=== PATIENT | female | born 1960 | race Caucasian/White ===

== ENCOUNTER 2017-11-29 23:01 | Emergency (ER) | payer OTHER, SELFPAY ==
--- NOTE | 2017-11-29 23:42 | EDPHYS ---
Physician Documentation [facility] Name: Etelvina Polk Age: 57 yrs Sex: Female : 1960 Arrival Date: 11/29/2017 Time: 23:04 Bed 16 Private MD: Aylin Thakkar K ED Physician Teddy Patricio HPI: 11/30 00:00 This 57 yrs old Female presents to ER via Ambulatory with complaints of pm1 Urinary Problem. 00:00 Onset: The symptoms/episode began/occurred 4 day(s) ago. pm1 00:00 The patient presents with urinary symptoms, frequency, urgency, pressure. Modifying pm1 factors: The symptoms are alleviated by nothing, the symptoms are aggravated by urinating. Associated signs and symptoms: Pertinent negatives: fever, nausea, vomiting, flank pain. Severity of symptoms: in the emergency department the symptoms are actually worse. The patient has experienced similar episodes in the past, a few times. The patient has not recently seen a physician. Historical: - Allergies: 11/29 23:25 Cortisone; bb 23:25 Sulfa (Sulfonamide Antibiotics); bb 23:25 bisoprolol fumarate; bb 23:25 Macrobid; bb 23:25 Zofran; bb 23:25 Aleve; bb - Home Meds: 23:25 [place] Thyroid 60 mg oral tab daily [Active]; Premarin 0.625 mg oral tab 1 tab once bb daily [Active]; Lomotil oral oral as needed [Active]; - PMHx: 23:25 Hypothyroidism; ibs; palpitations; bb - PSHx: 23:25 Hysterectomy; ; ectopic ; multiple surgeries for endometriosis; bb - Immunization history:: Adult Immunizations up to date. - Social history:: Smoking status: Patient/guardian denies using tobacco, Patient/guardian denies using alcohol, street drugs. - Ebola Screening: : No symptoms or risks identified at this time. ROS: 11/30 00:00 Positive for urinary frequency, hematuria, foul smelling urine. pm1 Constitutional: Negative for fever, chills, and weight loss, Eyes: Negative for injury, pain, redness, and discharge, ENT: Negative for injury, pain, and discharge, Neck: Negative for injury, pain, and swelling, Cardiovascular: Negative for chest pain, palpitations, and edema, Respiratory: Negative for shortness of breath, cough, wheezing, and pleuritic chest pain, Abdomen/GI: Negative for abdominal pain, nausea, vomiting, diarrhea, and constipation, Back: Negative for injury and pain, MS/Extremity: Negative for injury and deformity, Skin: Negative for injury, rash, and discoloration, Neuro: Negative for headache, weakness, numbness, tingling, and seizure. Exam: 00:00 Constitutional: This is a well developed, well nourished patient who is awake, alert, pm1 and in no acute distress. Head/Face: Normocephalic, atraumatic. Eyes: Pupils equal round and reactive to light, extra-ocular motions intact. Lids and lashes normal. Conjunctiva and sclera are non-icteric and not injected. Cornea within normal limits. Periorbital areas with no swelling, redness, or edema. ENT: Nares patent. No nasal discharge, no septal abnormalities noted. Tympanic membranes are normal and external auditory canals are clear. Oropharynx with no redness, swelling, or masses, exudates, or evidence of obstruction, uvula midline. Mucous membranes moist. Neck: Trachea midline, no thyromegaly or masses palpated, and no cervical lymphadenopathy. Supple, full range of motion without nuchal rigidity, or vertebral point tenderness. No Meningismus. Chest/axilla: Normal chest wall appearance and motion. Nontender with no deformity. No lesions are appreciated. Cardiovascular: Regular rate and rhythm with a normal S1 and S2. No gallops, murmurs, or rubs. Normal PMI, no JVD. No pulse deficits. Respiratory: Lungs have equal breath sounds bilaterally, clear to auscultation and percussion. No rales, rhonchi or wheezes noted. No increased work of breathing, no retractions or nasal flaring. Abdomen/GI: Soft, non-tender, with normal bowel sounds. No distension or tympany. No guarding or rebound. No evidence of tenderness throughout. Back: No spinal tenderness. No costovertebral tenderness. Full range of motion. Skin: Warm, dry with normal turgor. Normal color with no rashes, no lesions, and no evidence of cellulitis. MS/ Extremity: Pulses equal, no cyanosis. Neurovascular intact. Full, normal range of motion. 00:00 Neuro: Orientation: is normal, Motor: is normal, moves all fours. Vital Signs: 11/29 23:25 BP 172 / 80; Pulse 104; Resp 18 S; Temp 98.4(O); Pulse Ox 100% on R/A; Weight 74.84 kg bb (M); Height 5 ft. 6 in. (167.64 cm) (R); Pain 8/10; 23:58 BP 110 / 64; Pulse 90; Resp 18; Pulse Ox 98% on R/A; Pain 0/10; ea 23:25 Body Mass Index 26.63 (74.84 kg, 167.64 cm) bb MDM: 23:29 Patient medically screened. pm1 23:41 Data reviewed: vital signs. Data interpreted: Pulse oximetry: on room air is 100 %. pm1 Interpretation: normal. Counseling: I had a detailed discussion with the patient and/or guardian regarding: the historical points, exam findings, and any diagnostic results supporting the discharge/admit diagnosis, lab results, the need for outpatient follow up, to return to the emergency department if symptoms worsen or persist or if there are any questions or concerns that arise at home, pending urine culture. 11/29 23:30 Order name: Urine Microscopic Only; Complete Time: 03:46 pm1 11/29 23:41 Order name: Urine Dipstick--Ancillary (enter results); Complete Time: 03:46 rg2 11/29 23:30 Order name: Urine Dipstick-Ancillary (obtain specimen); Complete Time: 23:40 pm1 Administered Medications: 23:52 Drug: Rocephin (cefTRIAXone) 1 grams Route: IM; Site: right gluteus; ea 11/30 00:34 Follow up: Response: No adverse reaction ea Disposition: 00:45 Co-signature as Attending Physician, Teddy Patricio MD I agree with the assessment and kdr plan of care. Disposition: 11/29/17 23:42 Discharged to Home. Impression: Urinary tract infection, site not specified. - Condition is Stable. - Discharge Instructions: Urinary Tract Infection. - Prescriptions for Augmentin 875- 125 mg Oral Tablet - take 1 tablet by ORAL route every 12 hours for 10 days; 20 tablet. Diflucan 150 mg Oral Tablet - take 1 tablet by ORAL route one time for 1 day; 1 tablet. Lomotil 2.5- 0.025 mg Oral Tablet - take 1 tablet by ORAL route every 6 hours As needed; 20 tablet. - Medication Reconciliation Form, Thank You Letter, Antibiotic Education form. - Follow up: Emergency Department; When: As needed; Reason: Worsening of condition. Follow up: Aylin Thakkar MD; When: 2 - 3 days; Reason: Recheck today's complaints, Continuance of care, Re-evaluation by your physician. - Problem is new. - Symptoms have improved. Signatures: Dispatcher [employer] EDMS Teddy Patricio MD MD [facility] Kelly Goldstein RN RN bb Zeferino Johnson NP EQUAL OPPORTUNITY ASSISTANT pm1 Aria Clay RN RN ea Corrections: (The following items were deleted from the chart) 00:35 07 23:42 11/29/2017 23:42 Discharged to Home. Impression: Urinary tract infection, ea site not specified. Condition is Stable. Forms are Medication Reconciliation Form, Thank You Letter, Antibiotic Education, Prescription Opioid Use. Follow up: Emergency Department; When: As needed; Reason: Worsening of condition. Follow up: Aylin Thakkar; When: 2 - 3 days; Reason: Recheck today's complaints, Continuance of care, Re-evaluation by your physician. Problem is new. Symptoms have improved. pm1
--- NOTE | 2017-11-29 23:42 | ER ---
Nurse's Notes [facility] Name: Etelvina Polk Age: 57 yrs Sex: Female : 1960 Arrival Date: 11/29/2017 Time: 23:04 Bed 16 Private MD: Aylin Thakkar K Diagnosis: Urinary tract infection, site not specified Presentation: 11/29 23:20 Presenting complaint: Patient states: she thinks she is having symptoms of a UTI for bb several days with frequency, pressure, pink-tinged urine that is cloudy and foul smelling. Transition of care: patient was not received from another setting of care. Onset of symptoms was November 26, 2017. Risk Assessment: Do you want to hurt yourself or someone else? Patient reports no desire to harm self or others. Initial Sepsis Screen: Does the patient meet any 2 criteria? No. Patient's initial sepsis screen is negative. Does the patient have a suspected source of infection? No. Patient's initial sepsis screen is negative. Care prior to arrival: None. 23:20 Method Of Arrival: Ambulatory bb 23:20 Acuity: JUAN C 4 bb Historical: - Allergies: 23:25 Cortisone; bb 23:25 Sulfa (Sulfonamide Antibiotics); bb 23:25 bisoprolol fumarate; bb 23:25 Macrobid; bb 23:25 Zofran; bb 23:25 Aleve; bb - Home Meds: 23:25 [place] Thyroid 60 mg oral tab daily [Active]; Premarin 0.625 mg oral tab 1 tab once bb daily [Active]; Lomotil oral oral as needed [Active]; - PMHx: 23:25 Hypothyroidism; ibs; palpitations; bb - PSHx: 23:25 Hysterectomy; ; ectopic ; multiple surgeries for endometriosis; bb - Immunization history:: Adult Immunizations up to date. - Social history:: Smoking status: Patient/guardian denies using tobacco, Patient/guardian denies using alcohol, street drugs. - Ebola Screening: : No symptoms or risks identified at this time. Screenin:34 Abuse screen: Denies threats or abuse. Nutritional screening: No deficits noted. ea Tuberculosis screening: No symptoms or risk factors identified. Fall Risk None identified. Assessment: 23:31 General: Appears in no apparent distress. Behavior is calm, cooperative, appropriate ea for age. General: Pt reports she has been feeling frequency, and pressure when urinating, pt reports she has been putting it off for about three days, but she noticed her urine turn dark tea color today. . General:. Pain: Denies pain. Neuro: Level of Consciousness is awake, alert, obeys commands, Oriented to person, place, time, situation. Cardiovascular: Patient's skin is warm and dry. Respiratory: Airway is patent Respiratory effort is even, unlabored, Respiratory pattern is regular, symmetrical. GI: Abdomen is non-distended. : Urine is cloudy, Reports urgency, urinary frequency. EENT: No signs and/or symptoms were reported regarding the EENT system. Derm: Skin is pink, warm \T\ dry. Musculoskeletal: Circulation, motion, and sensation intact. 11/30 00:07 Reassessment: Patient and/or family updated on plan of care and expected duration. Pain ea level reassessed. Patient is alert, oriented x 3, equal unlabored respirations, skin warm/dry/pink. Discharge instruction given to patient, verbalized the understanding of instruction. Awaiting for shot time. Vital Signs: 11/29 23:25 BP 172 / 80; Pulse 104; Resp 18 S; Temp 98.4(O); Pulse Ox 100% on R/A; Weight 74.84 kg bb (M); Height 5 ft. 6 in. (167.64 cm) (R); Pain 8/10; 23:58 BP 110 / 64; Pulse 90; Resp 18; Pulse Ox 98% on R/A; Pain 0/10; ea 23:25 Body Mass Index 26.63 (74.84 kg, 167.64 cm) ED Course: 23:04 Patient arrived in ED. al2 23:04 Aylin Thakkar MD is Private Physician. al2 23:21 Zeferino Johnson NP is PHCP. pm1 23:21 Teddy Patricio MD is Attending Physician. pm1 23:22 Triage completed. bb 23:23 Aria Clay, MELLISSA is Primary Nurse. ea 23:25 Arm band placed on Patient placed in an exam room, on a stretcher, on pulse oximetry. bb Family accompanied patient. 23:35 Patient has correct armband on for positive identification. Bed in low position. Call ea light in reach. Side rails up X2. 23:41 Aylin Thakkar MD is Referral Physician. pm1 23:57 No provider procedures requiring assistance completed. Patient did not have IV access ea during this emergency room visit. Administered Medications: 23:52 Drug: Rocephin (cefTRIAXone) 1 grams Route: IM; Site: right gluteus; ea 11/30 00:34 Follow up: Response: No adverse reaction ea Outcome: 11/29 23:42 Discharge ordered by . pm1 11/30 00:07 Condition: improved ea Discharge instructions given to patient, Instructed on discharge instructions, follow up and referral plans. medication usage, Demonstrated understanding of instructions, follow-up care, medications, Prescriptions given X 3. 00:33 Discharged to home ambulatory, with significant other. ea 00:35 Patient left the ED. ea Signatures: Kelly Goldstein RN Zeferino Devries, MARITA HEADRIG SAWYER pm1 Aria Clay RN RN ea Love, Angelica al2 Corrections: (The following items were deleted from the chart) 11/29 23:22 23:19 Presenting complaint: frank marie
[2017-11-29] MEDS ORDERED: CEFTRIAXONE 1000 MG/VIAL ONE (23:44)
[2017-11-30 00:37] LABS: Calcium Oxalate Crystals- Ur FEW (NONE SEEN); Urine Bacteria <20 /HPF (<20); Urine Culture Reflex Order REFLEXED; Urine RBC TNTC /HPF (NONE SEEN)
[2017-11-30 02:26] LABS: Urine Blood 3+ (NEG); Urine Glucose NEGATIVE (NEG); Urine Protein 2+ (NEG); Urine Specific Gravity 1.025 (1.005-1.030); Urine pH 5.5 (5.0-7.0)
== END 2017-11-30 00:35 | disposition home or self-care (01) ==
LOC: ER 23:01
DX: N39.0 Urinary tract infection, site not specified (principal); E03.9 Hypothyroidism, unspecified; Z88.1 Allergy status to other antibiotic agents; Z88.2 Allergy status to sulfonamides; Z88.8 Allergy status to other drugs, medicaments and biological substances
CPT/HCPCS: 81003; 81015; 87086; 87088; 96372; 99283

== ENCOUNTER 2021-09-25 15:28 | Emergency (ER) | payer BC ==
[2021-09-25 16:19] LABS: Absolute Lymphocytes (CBC) 0.6 K/uL (0.7-4.9); Hematocrit 43.8 % (36.0-45.0); Lymphocytes % 9.8 % (15.3-44.8); MPV 7.2 fL (7.6-11.3); RBC Red Blood Cell Count 4.89 M/uL (3.86-4.86)
[2021-09-25 16:42] LABS: Albumin 4.2 g/dL (3.4-5.0); Bilirubin Direct 0.1 mg/dL (0-0.2); Bilirubin Total 0.5 mg/dL (0.2-1.0); Potassium 3.7 mmol/L (3.5-5.1); Protein, Total 7.8 g/dL (6.4-8.2); Thyroid Stimulating Hormone 2.03 uIU/mL (0.360-3.740); Troponin High Sensitivity 6.8 pg/mL (<58.9)
--- NOTE | 2021-09-25 16:53 | RAD REPORT ---
EXAM DESCRIPTION: RAD - Chest Single View - 09/25/2021 4:34 pm CLINICAL HISTORY: PALPITATIONS COMPARISON: Portable 01/25/2016 TECHNIQUE: AP portable chest image was obtained 09/25/2021 4:34 pm . FINDINGS: Lungs are clear. Heart and vasculature are normal. No measurable pleural effusion and no p neumothorax. No acute bony abnormality seen. No acute aortic findings suspected. IMPRESSION: No acute cardiopulmonary process.
--- NOTE | 2021-09-25 17:47 | EDPHYS ---
Physician Documentation [facility] Name: Etelvina Polk Age: 61 yrs Sex: Female : 1960 Arrival Date: 09/25/2021 Time: 15:31 Bed 19 Private MD: Aylin Thakkar K ED Physician Velasquez Zhao HPI: 09/25 15:58 This 61 yrs old Female presents to ER via Ambulatory with complaints of High Blood pm1 Pressure, Heart Racing. 15:58 The patient has elevated blood pressure and discovered this at home, with a home device.pm1 15:58 Onset: The symptoms/episode began/occurred today. Modifying factors: The symptoms are pm1 aggravated by patient relates it to her exposure and illness to mono 6 years ago. Associated signs and symptoms: Pertinent positives: palpitations, Pertinent negatives: chest pain, dizziness, dyspnea, headache, nausea, vomiting. The patient has not recently seen a physician. Historical: - Allergies: 15:58 Macrobid; vg1 15:58 Aleve; vg1 15:58 bisoprolol fumarate; vg1 15:58 Cortisone; vg1 15:58 Sulfa (Sulfonamide Antibiotics); vg1 15:58 Zofran; vg1 - Home Meds: 15:58 [place] Thyroid 30 mg oral tab [Active]; Premarin 0.625 mg Oral tab 1 tab once daily vg1 [Active]; Lomotil Oral as needed [Active]; - PMHx: 15:58 Hypothyroidism; ibs; palpitations; vg1 - Immunization history:: Client reports having NOT received the Covid vaccine. - Social history:: Smoking status: Patient denies any tobacco usage or history of. ROS: 15:58 Constitutional: Negative for fever, chills, and weight loss, Cardiovascular: Negative pm1 for chest pain and edema, positive palpitations Respiratory: Negative for shortness of breath, cough, wheezing, and pleuritic chest pain, Abdomen/GI: Negative for abdominal pain, nausea, vomiting, diarrhea, and constipation, Back: Negative for injury and pain, MS/Extremity: Negative for injury and deformity, Skin: Negative for injury, rash, and discoloration, Neuro: Negative for headache, weakness, numbness, tingling, and seizure. 15:58 All other systems are negative. Exam: 15:58 Constitutional: This is a well developed, well nourished patient who is awake, alert, pm1 and in no acute distress. Head/Face: Normocephalic, atraumatic. 15:58 Back: No spinal tenderness. No costovertebral tenderness. Full range of motion. Skin: Warm, dry with normal turgor. Normal color with no rashes, no lesions, and no evidence of cellulitis. MS/ Extremity: Pulses equal, no cyanosis. Neurovascular intact. Full, normal range of motion. 15:58 Cardiovascular: Exam negative for acute changes, Rate: normal, Rhythm: regular, Pulses: no pulse deficits are appreciated, Edema: is not appreciated. 15:58 Respiratory: Exam negative for acute changes, respiratory distress, shortness of breath, Breath sounds: are clear throughout. 15:58 Abdomen/GI: Exam negative for acute changes, Inspection: abdomen appears normal, Palpation: abdomen is soft and non-tender, in all quadrants. 15:58 Neuro: Exam negative for acute changes, Orientation: is normal, Mentation: is normal, Motor: is normal, moves all fours. Vital Signs: 15:52 BP 184 / 92; Pulse 105; Resp 16; Temp 98.8(TE); Pulse Ox 100% ; Weight 80.29 kg; Height vg1 5 ft. 6 in. (167.64 cm); Pain 0/10; 16:41 BP 174 / 84; Pulse 99; ll1 18:11 BP 148 / 76; Pulse 90; Resp 16; Pulse Ox 100% ; Pain 0/10; ll1 15:52 Body Mass Index 28.57 (80.29 kg, 167.64 cm) vg1 MDM: 15:50 Patient medically screened. pm1 17:46 Data reviewed: vital signs. Data interpreted: Pulse oximetry: on room air is 100 %. pm1 Interpretation: normal. Counseling: I had a detailed discussion with the patient and/or guardian regarding: the historical points, exam findings, and any diagnostic results supporting the discharge/admit diagnosis, lab results, radiology results, the need for outpatient follow up, a family practitioner, to return to the emergency department if symptoms worsen or persist or if there are any questions or concerns that arise at home. 09/25 15:58 Order name: Basic Metabolic Panel; Complete Time: 17:06 pm1 09/25 15:58 Order name: CBC with Diff; Complete Time: 17:06 pm1 09/25 15:58 Order name: LFT's; Complete Time: 17:06 pm1 09/25 15:58 Order name: Magnesium; Complete Time: 17:06 pm1 09/25 15:58 Order name: Troponin HS; Complete Time: 17:06 pm1 09/25 15:58 Order name: TSH; Complete Time: 17:06 pm1 09/25 15:58 Order name: XRAY Chest (1 view); Complete Time: 17:06 pm1 09/25 15:58 Order name: EKG; Complete Time: 15:59 pm1 09/25 15:58 Order name: Cardiac monitoring; Complete Time: 16:30 pm1 09/25 15:58 Order name: EKG - Nurse/Tech; Complete Time: 16:30 pm1 09/25 15:58 Order name: IV Saline Lock; Complete Time: 16:20 pm1 09/25 15:58 Order name: Labs collected and sent; Complete Time: 16:20 pm1 09/25 15:58 Order name: O2 Per Protocol; Complete Time: 16:20 pm1 09/25 15:58 Order name: O2 Sat Monitoring; Complete Time: 16:20 pm1 Administered Medications: No medications were administered Disposition: 09/26 12:22 Co-signature as Attending Physician, Velasquez Zhao MD. rn Disposition Summary: 09/25/21 17:47 Discharge Ordered Location: Home pm1 Problem: new pm1 Symptoms: have improved pm1 Condition: Stable pm1 Diagnosis - Essential (primary) hypertension pm1 - Palpitations pm1 Followup: pm1 - With: Emergency Department - When: As needed - Reason: Worsening of condition Followup: pm1 - With: Private Physician - When: 2 - 3 days - Reason: Recheck today's complaints, Continuance of care, Re-evaluation by your physician Discharge Instructions: - Discharge Summary Sheet pm1 - Hypertension, Adult pm1 - Palpitations pm1 - How to Take Your Blood Pressure, [id number] pm1 - DASH Eating Plan pm1 - Managing Your Hypertension pm1 Forms: - Medication Reconciliation Form pm1 - Thank You Letter pm1 - Antibiotic Education pm1 - Prescription Opioid Use pm1 Signatures: Dispatcher [employer] EDVelasquez Stevens MD MD rn Zeferino Johnson, MARITA PCTS pm1 Trudy Muniz RN RN vg1 Corrections: (The following items were deleted from the chart) 12:19 09/25 15:58 The patient has elevated blood pressure and discovered this at a friend's pm1 home, pm1 09/26 12:21 05 15:58 Constitutional: Negative for fever, chills, and weight loss, pm1 Cardiovascular: Negative for chest pain, palpitations, and edema, Respiratory: Negative for shortness of breath, cough, wheezing, and pleuritic chest pain, Abdomen/GI: Negative for abdominal pain, nausea, vomiting, diarrhea, and constipation, Back: Negative for injury and pain, MS/Extremity: Negative for injury and deformity, Skin: Negative for injury, rash, and discoloration, Neuro: Negative for headache, weakness, numbness, tingling, and seizure, pm1
--- NOTE | 2021-09-25 17:47 | ER ---
Nurse[facility] Notes [facility] Name: Etelvina Polk Age: 61 yrs Sex: Female : 1960 Arrival Date: 09/25/2021 Time: 15:31 Bed 19 Private MD: Aylin Thakkar K Diagnosis: Essential (primary) hypertension;Palpitations Presentation: 09/25 15:52 Chief complaint: Patient states: "I had mono six years ago and since then I've had vg1 issues with my heart" Pt states palpitations that 'feel like pounding, BP at home was 220/107 around 1500. Denies headache, chest pain or SOB and states nausea. Coronavirus screen: Vaccine status: Patient reports being unvaccinated. Client denies travel out of the [place] in the last 14 days. Ebola Screen: Patient denies exposure to infectious person. Patient denies travel to an Ebola-affected area in the 21 days before illness onset. Initial Sepsis Screen: Does the patient meet any 2 criteria? HR > 90 bpm. Does the patient have a suspected source of infection? No. Patient's initial sepsis screen is negative. Risk Assessment: Do you want to hurt yourself or someone else? Patient reports no desire to harm self or others. Onset of symptoms was September 25, 2021. 15:52 Method Of Arrival: Ambulatory vg1 15:52 Acuity: JUAN C 3 vg1 Triage Assessment: 15:58 General: Appears uncomfortable, Behavior is calm, cooperative. Pain: Denies pain. vg1 Neuro: Level of Consciousness is awake, alert, obeys commands, Oriented to person, place, time, situation. Cardiovascular: Patient's skin is warm and dry. Historical: - Allergies: 15:58 Macrobid; vg1 15:58 Aleve; vg1 15:58 bisoprolol fumarate; vg1 15:58 Cortisone; vg1 15:58 Sulfa (Sulfonamide Antibiotics); vg1 15:58 Zofran; vg1 - Home Meds: 15:58 [place] Thyroid 30 mg oral tab [Active]; Premarin 0.625 mg Oral tab 1 tab once daily vg1 [Active]; Lomotil Oral as needed [Active]; - PMHx: 15:58 Hypothyroidism; ibs; palpitations; vg1 - Immunization history:: Client reports having NOT received the Covid vaccine. - Social history:: Smoking status: Patient denies any tobacco usage or history of. Screenin:19 Abuse screen: Denies threats or abuse. Nutritional screening: No deficits noted. ll1 Tuberculosis screening: No symptoms or risk factors identified. 18:13 Fall Risk IV access (20 points). Total Miles Fall Scale indicates No Risk (0-24 pts). ll1 Assessment: 16:19 Reassessment: No changes from previously documented assessment. Patient and/or family ll1 updated on plan of care and expected duration. Pain level reassessed. Patient is alert, oriented x 3, equal unlabored respirations, skin warm/dry/pink. 17:15 Reassessment: No changes from previously documented assessment. Patient and/or family ll1 updated on plan of care and expected duration. Pain level reassessed. Patient is alert, oriented x 3, equal unlabored respirations, skin warm/dry/pink. 18:12 Reassessment: No changes from previously documented assessment. Patient and/or family ll1 updated on plan of care and expected duration. Pain level reassessed. Patient is alert, oriented x 3, equal unlabored respirations, skin warm/dry/pink. Vital Signs: 15:52 BP 184 / 92; Pulse 105; Resp 16; Temp 98.8(TE); Pulse Ox 100% ; Weight 80.29 kg; Height vg1 5 ft. 6 in. (167.64 cm); Pain 0/10; 16:41 BP 174 / 84; Pulse 99; ll1 18:11 BP 148 / 76; Pulse 90; Resp 16; Pulse Ox 100% ; Pain 0/10; ll1 15:52 Body Mass Index 28.57 (80.29 kg, 167.64 cm) vg1 ED Course: 15:31 Patient arrived in ED. mr 15:32 Aylin Thakkar MD is Private Physician. mr 15:38 Zeferino Johnson NP is PHCP. pm1 15:38 Velasquez Zhao MD is Attending Physician. pm1 15:57 Triage completed. vg1 15:58 Arm band placed on. vg1 16:19 Kwaku Bonilla RN is Primary Nurse. ll1 16:19 Patient placed in an exam room, on a stretcher. ll1 16:19 Patient has correct armband on for positive identification. Bed in low position. Call 1 light in reach. Side rails up X 1. conveyor monitor on. Pulse ox on. 16:30 Warm blanket given. NIBP on. [facility] 16:31 Initial lab(s) drawn, by me, sent to lab. Inserted saline lock: 22 gauge in left [facility] antecubital area, using aseptic technique. Blood collected. 16:32 TSH Sent. [facility] 16:32 Basic Metabolic Panel Sent. [facility] 16:32 LFT's Sent. [facility] 16:32 Magnesium Sent. [facility] 16:32 Troponin HS Sent. [facility] 16:36 XRAY Chest (1 view) In Process Unspecified. EDMS 18:12 No provider procedures requiring assistance completed. IV discontinued, intact, ll1 bleeding controlled, No redness/swelling at site. Pressure dressing applied. Administered Medications: No medications were administered Outcome: 17:47 Discharge ordered by MD. pm1 18:12 Discharged to home ambulatory. ll1 18:12 Condition: stable 18:12 Discharge instructions given to patient, Instructed on discharge instructions, follow up and referral plans. Demonstrated understanding of instructions, follow-up care. 18:13 Patient left the ED. 1 Signatures: Dispatcher [employer] EDNE WilliamLee Ann ElizabethZeferino, MARITA LOCOMOTIVE CRANE ENGINEER [address] [facility] Trudy Muniz, RN RN vg1 Kwaku Bonilla RN RN 1 Corrections: (The following items were deleted from the chart) 15:57 15:52 Acuity: JUAN C 2 vg1 vg1 15:58 15:52 Chief complaint: Patient states: "I had mono six years ago and since then I've vg1 had issues with my heart" Pt states palpitations that 'feel like pounding, BP at home was 220/107 around 1500. Denies headache and states nausea. vg1
[2021-09-25 18:37] VITALS: TEMP 98.8; O2SAT 100
[2021-09-25 18:40] VITALS: BP 148/76
--- NOTE | 2021-09-26 10:52 | EKG ---
Test Date: 2021-09-25 Test Time: 16:39:17 Pharmacognosy Teacher: ADAM MEASUREMENT RESULTS: Intervals: Rate: 95 OH: 140 QRSD: 84 QT: 362 QTc: 454 [place]: P: 55 OH: 140 QRS: 59 T: 58 INTERPRETIVE STATEMENTS: Normal sinus rhythm Nonspecific ST abnormality Abnormal ECG Compared to ECG 03/10/2016 10:24:23 ST (T wave) deviation now present Electronically Signed On 09-26-21 10:50:15 CDT by Jorden Hair
== END 2021-09-25 18:13 | disposition home or self-care (01) ==
LOC: ER 15:28
DX: R00.2 Palpitations (principal); I10 Essential (primary) hypertension; E03.9 Hypothyroidism, unspecified; Z88.1 Allergy status to other antibiotic agents; Z88.2 Allergy status to sulfonamides; Z88.8 Allergy status to other drugs, medicaments and biological substances
CPT/HCPCS: 36415; 71045; 80048; 80076; 83735; 84443; 84484; 85025; 93005; 99284

== ENCOUNTER 2024-08-08 18:37 | Emergency (ER) | payer OTHER, BC ==
--- OUTSIDE RECORDS SUMMARY | 2024-08-08 18:41 | XMS REPORT | Continuity of Care Document ---
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 Role Phone Karan Lopez Attending Clinician Unavailable [email or web address]_Kadiyala_S Attending Clinician Unavaila ble [email or web address]_Kadiyala_S Admitting Clinician Unavaila ble Payers Payer Name Policy Type Policy Number Effective Date Expirati on Date Source [facility] 53 [id number] [place] [address] [id number] 2022 00:00:00 [facility] Problems Condition Name Condition Details Condition Category Status Onset Date Resolution Date Last Treatment Date Treating Clinician Comments Source [id number] Leukopenia , unspecifie d type Problem [facility] [id number] Mixed hyperlipid emia Problem [facility] [id number] LAINA (generaliz ed anxiety disorder) Problem [facility] [id number] Irritable bowel syndrome with diarrhea Problem [facility] [id number] Acquired hypothyroi dism Problem [facility] [id number] Postmenopa usal syndrome Problem [facility] [id number] Primary insomnia Problem [facility] Allergies, Adverse Reactions, Alerts Allergy Name Allergy Type Status Severity Reaction(s) Onset Date Inactive Date Treating Clinician Comments Source [id number] Drug allergy Active Unknown [facility] Substanc e with sulfonam lubna structur e and antibact erial mechanis m of action (substan ce) Substanc e with sulfonam lubna structur e and antibact erial mechanis m of action (substan ce) Active Unknown [facility] Social History Social Habit Start Date Stop Date Quantity Comments Source History of Tobacco Use [facility] Sex Assigned At [facility] Smoking Status Start Date Stop Date Source Never Smoker [facility] Medications Ordered Medication Name Filled Medication Name Start Date Stop Date Current Medication? Ordering Clinician Indication Dosage Frequency Signature (SIG) Comments Components Source busPIRone HCl 5 MG busPIRone HCl 5 MG 3-04 00:00: 00 No 1{table t} BID busPIRone HCl 5 MG Lomotil 2.5-0.025 MG Lomotil 2.5-0.025 MG 1-06 00:00: 00 No BID Lomotil 2.5-0.025 MG Hydrocortis one Acetate 25 MG Hydrocortis one Acetate 25 MG 9- 00:00: 00 No 1{suppo sitory_ as_need ed} QD Hydrocorti sone Acetate 25 MG [place] Thyroid 30 MG [place] Thyroid 30 MG No QD [place] Thyroid 30 MG [place] Thyroid 15 MG [place] Thyroid 15 MG No QD [place] Thyroid 15 MG Premarin 0.45 MG Premarin 0.45 MG No 1{table t} QD Premarin 0.45 MG Vital Signs Vital Name Observation Time Observation Value Comments S araceli height 2024-07-28 13:00:00 65.50 [in_i] Com [facility] weight 2024-07-28 13:00:00 155 [lb_av] Comm on [facility] temperature 2024-07-28 13:00:00 97.9 [degF] Com [facility] bmi 2024-07-28 13:00:00 25.4 kg/m2 Commo n [facility] oximetry 2024-07-28 13:00:00 99 % Commo n [facility] respiratory rate 2024-07-28 13:00:00 18 /min Common [facility] blood pressure systolic 2024-07-28 13:00:00 137 mm[Hg] Common [facility] blood pressure diastolic 2024-07-28 13:00:00 85 mm[Hg] Common [facility] height 2024-06-11 13:45:00 65.50 [in_i] Com [facility] weight 2024-06-11 13:45:00 157 [lb_av] Comm on [facility] bmi 2024-06-11 13:45:00 25.73 kg/m2 Comm on [facility] blood pressure systolic 2024-06-11 13:45:00 130 mm[Hg] Common [facility] blood pressure diastolic 2024-06-11 13:45:00 70 mm[Hg] [facility] height 2023-11-07 10:40:00 65.50 [in_i] Com [facility] weight 2023-11-07 10:40:00 168.0 [lb_av] Co mmon [facility] temperature 2023-11-07 10:40:00 97.7 [degF] Com [facility] bmi 2023-11-07 10:40:00 27.53 kg/m2 Comm on [facility] oximetry 2023-11-07 10:40:00 99 % Commo n [facility] respiratory rate 2023-11-07 10:40:00 18 /min Common [facility] blood pressure systolic 2023-11-07 10:40:00 132 mm[Hg] Common [facility] blood pressure diastolic 2023-11-07 10:40:00 77 mm[Hg] Common [facility] height 2023-08-14 13:00:00 65.50 [in_i] Com [facility] weight 2023-08-14 13:00:00 168.2 [lb_av] Co [facility] temperature 2023-08-14 13:00:00 97.7 [degF] Com [facility] bmi 2023-08-14 13:00:00 27.56 kg/m2 Comm on [facility] oximetry 2023-08-14 13:00:00 100 % Commo n [facility] respiratory rate 2023-08-14 13:00:00 17 /min [facility] blood pressure systolic 2023-08-14 13:00:00 139 mm[Hg] Common [facility] blood pressure diastolic 2023-08-14 13:00:00 87 mm[Hg] [facility] height 2023-05-06 10:20:00 65.50 [in_i] Com [facility] weight 2023-05-06 10:20:00 169.0 [lb_av] Co [facility] temperature 2023-05-06 10:20:00 97.7 [degF] Com [facility] bmi 2023-05-06 10:20:00 27.69 kg/m2 Comm on [facility] oximetry 2023-05-06 10:20:00 99 % Commo n [facility] respiratory rate 2023-05-06 10:20:00 18 /min [facility] blood pressure systolic 2023-05-06 10:20:00 137 mm[Hg] Common [facility]iri [facility] blood pressure diastolic 2023-05-06 10:20:00 73 mm[Hg] Common [facility] height 2022-12-26 10:00:00 65.50 [in_i] Com [facility] weight 2022-12-26 10:00:00 174.2 [lb_av] Co [facility] temperature 2022-12-26 10:00:00 98.0 [degF] Com [facility] bmi 2022-12-26 10:00:00 28.54 kg/m2 Comm on [facility] oximetry 2022-12-26 10:00:00 99 % Commo n [facility] respiratory rate 2022-12-26 10:00:00 16 /min [facility] blood pressure systolic 2022-12-26 10:00:00 135 mm[Hg] [facility] blood pressure diastolic 2022-12-26 10:00:00 83 mm[Hg] [facility] height 2022-11-19 10:20:00 65.50 [in_i] Com [facility] weight 2022-11-19 10:20:00 175.0 [lb_av] Co mmon [facility] temperature 2022-11-19 10:20:00 97.7 [degF] Com [facility] bmi 2022-11-19 10:20:00 28.68 kg/m2 Comm on [facility] oximetry 2022-11-19 10:20:00 99 % Commo n [facility] respiratory rate 2022-11-19 10:20:00 18 /min [facility] blood pressure systolic 2022-11-19 10:20:00 135 mm[Hg] [facility] blood pressure diastolic 2022-11-19 10:20:00 70 mm[Hg] [facility] Encounters Start Date/Time End Date/Time Encounter Type Admission Type Attending Clinicians Care Facility Care Department Encounter ID Source 2024-07-27 16:00:00 Outpatient JohnKaran [facility] [id number] [facility] 2024-06-09 13:17:00 [facility] [id number] [facility] 2023-10-30 10:23:00 Outpatient Lopez, Karan [facility] [id number] [facility] 2023-08-14 09:29:01 Outpatient Lopez, Karan [facility] [id number] [facility] 2023-07-29 12:02:00 Outpatient Lopez, Karan [facility] [id number] [facility] 2022-11-19 09:49:02 Outpatient Lopez, Karan [facility] [id number] [facility] 2024-07-28 00:00:00 2024-07-28 00:00:00 OFFICE VISIT ESTAB PT LEVEL 4 [facility] [id number] [facility] 2024-07-23 00:00:00 2024-07-23 00:00:00 (WEB) [facility] [id number] [facility] 2024-07-01 00:00:00 2024-07-01 00:00:00 (TEL) [facility] [id number] [facility] 2024-06-11 00:00:00 2024-06-11 00:00:00 OFFICE VISIT ESTAB PT LEVEL 4 [facility] [id number] [facility] 2024-06-08 00:00:00 2024-06-08 00:00:00 (WEB) [facility] [id number] [facility] 2024-06-08 00:00:00 2024-06-08 00:00:00 (TEL) [facility] [id number] [facility] 2024-06-06 00:00:00 2024-06-06 00:00:00 (WEB) [facility] [id number] [facility] 2024-06-01 00:00:00 2024-06-01 00:00:00 (WEB) [facility] [id number] [facility] 2024-05-31 00:00:00 2024-05-31 00:00:00 (WEB) [facility] [id number] [facility] 2024-05-31 00:00:00 2024-05-31 00:00:00 (WEB) [facility] [id number] [facility] 2024-02-13 00:00:00 2024-02-13 00:00:00 (WEB) [facility] [id number] [facility] 2024-02-12 00:00:00 2024-02-12 00:00:00 (WEB) [facility] [id number] [facility] 2023-12-24 00:00:00 2023-12-24 00:00:00 (TEL) [facility] [id number] [facility] 2023-11-13 00:00:00 2023-11-13 00:00:00 (WEB) [facility] [id number] [facility] 2023-11-12 00:00:00 2023-11-12 00:00:00 (WEB) [facility] [id number] [facility] 2023-11-08 00:00:00 2023-11-08 00:00:00 (TEL) [facility] [id number] [facility] 2023-11-07 00:00:00 2023-11-07 00:00:00 PREV VISIT EST AGE 40-64 [facility] [id number] [facility] 2023-09-17 00:00:00 2023-09-17 00:00:00 (TEL) [facility] [id number] [facility] 2023-08-14 00:00:00 2023-08-14 00:00:00 OFFICE VISIT ESTAB PT LEVEL 3 [facility] [id number] [facility] 2023-08-14 00:00:00 2023-08-14 00:00:00 (TEL) [facility] [id number] [facility] 2023-08-13 00:00:00 2023-08-13 00:00:00 (WEB) [facility] [id number] [facility] 2023-07-31 00:00:00 2023-07-31 00:00:00 (TEL) [facility] [id number] [facility] 2023-07-29 00:00:00 2023-07-29 00:00:00 (WEB) [facility] [id number] [facility] 2023-07-27 00:00:00 2023-07-27 00:00:00 (WEB) [facility] [id number] [facility] 2023-05-06 00:00:00 2023-05-06 00:00:00 OFFICE VISIT ESTAB PT LEVEL 4 [facility] [id number] [facility] 2023-03-23 00:00:00 2023-03-23 00:00:00 Outpatient GC_GCBZW_Ka diyala_S [facility] [id number] [facility] 2022-12-27 00:00:00 2022-12-27 00:00:00 (TEL) [facility] [id number] [facility] 2022-12-26 00:00:00 2022-12-26 00:00:00 PREV VISIT EST AGE 40-64 [facility] [id number] [facility] 2022-11-21 00:00:00 2022-11-21 00:00:00 (WEB) [facility] [id number] [facility] 2022-11-19 00:00:00 2022-11-19 00:00:00 OFFICE VISIT NEW PT LEVEL 3 [facility] [id number] [facility] Results Test Description Test Time Test Comments Results Result Co mments Source URINALYSIS (CULTURE IF INDICATED)2023-04-29 00:00:00* Test Item Value Reference Range Interpretation Comme nts APPEARANCE (test code = 5767-9) CLEAR CLEAR BACTERIA (test code = 05971-8) NONE SEEN NONE SEEN BILIRUBIN (test code = 5770-3) NEGATIVE NEGATIVE CASTS, HYALINE (test code = 88983-0) NONE SEEN NONE-TRACE COLOR (test code = 5778-6) YELLOW YELLOW-STRAW EPITHELIAL CELLS (test code = 64858-3) 0-5 /HPF See_Comment [Automated messa ge] The system which generated this result transmitted reference range: 0-10 /HPF. The reference range was not used to interpret this result as normal/abnormal. GLUCOSE (test code = 5792-7) NEGATIVE NEGATIVE KETONES (test code = 5797-6) NEGATIVE NEGATIVE LEUKOCYTE ESTERASE (test code = 5799-2) TRACE NEGATIVE A NITRITE (test code = 5802-4) NEGATIVE NEGATIVE OCCULT BLOOD (test code = 12181-5) NEGATIVE NEGATIVE pH (test code = 5803-2) 5.5 5.0-9.0 PROTEIN (test code = 45795-4) NEGATIVE NEGATIVE RED BLOOD CELLS (test code = 01886-7) 0-2 /HPF See_Comment [Automated messa ge] The system which generated this result transmitted reference range: 0-2 /HPF. The reference range was not used to interpret this result as normal/abnormal. SPECIFIC GRAVITY (test code = 5811-5) 1.012 1.005-1.035 UROBILINOGEN (test code = 90952-8) 0.2 MG/DL See_Comment [Automated messa ge] The system which generated this result transmitted reference range: <=2.0 MG/DL. The reference range was not used to interpret this result as normal/abnormal. WHITE BLOOD CELLS (test code = 18291-3) 0-5 /HPF See_Comment [Automated messa ge] The system which generated this result transmitted reference range: 0-5 /HPF. The reference range was not used to interpret this result as normal/abnormal. CBC W/AUTO [id number] 00:00:00* Test Item Value Reference Range Interpretation Comme nts NUCLEATED RBCS (test code = 69182-5) 0.0 /100 WBC'S See_Comment [Automated messa ge] The system which generated this result transmitted reference range: 0.0 /100 WBC'S. The reference range was not used to interpret this result as normal/abnormal. ABSOLUTE EOSINOPHILS (test code = 77146-7) 0.03 K/UL See_Comment [Automated messa ge] The system which generated this result transmitted reference range: 0.00-0.50 K/UL. The reference range was not used to interpret this result as normal/abnormal. ABSOLUTE LYMPHOCYTES (test code = 39565-6) 0.77 K/UL See_Comment L [Automated messa ge] The system which generated this result transmitted reference range: 1.00-4.00 K/UL. The reference range was not used to interpret this result as normal/abnormal. ABSOLUTE MONOCYTES (test code = 20832-3) 0.18 K/UL See_Comment L [Automated messa ge] The system which generated this result transmitted reference range: 0.20-1.00 K/UL. The reference range was not used to interpret this result as normal/abnormal. ABSOLUTE NEUTROPHILS (test code = 43949-7) 1.82 K/UL See_Comment [Automated messa ge] The system which generated this result transmitted reference range: 1.50-7.50 K/UL. The reference range was not used to interpret this result as normal/abnormal. BASOPHILS (test code = 14684-8) 0.4 % EOSINOPHILS (test code = 84260-6) 1.1 % HEMATOCRIT (test code = 29751-2) 42.2 % See_Comment [Automated messa ge] The system which generated this result transmitted reference range: 34.0-45.0 %. The reference range was not used to interpret this result as normal/abnormal. HEMOGLOBIN (test code = 718-7) 14.9 G/DL See_Comment [Automated messa ge] The system which generated this result transmitted reference range: 11.5-15.5 G/DL. The reference range was not used to interpret this result as normal/abnormal. LYMPHOCYTES (test code = 08686-7) 27.4 % MCH (test code = 01604-7) 32.3 PG See_Comment [Automated messa ge] The system which generated this result transmitted reference range: 25.0-33.0 PG. The reference range was not used to interpret this result as normal/abnormal. MCHC (test code = 15884-2) 35.3 G/DL See_Comment [Automated messa ge] The system which generated this result transmitted reference range: 31.0-36.0 G/DL. The reference range was not used to interpret this result as normal/abnormal. MCV (test code = 21221-7) 91.5 fL See_Comment [Automated messa ge] The system which generated this result transmitted reference range: 80.0-99.0 fL. The reference range was not used to interpret this result as normal/abnormal. MONOCYTES (test code = 95794-2) 6.4 % NEUTROPHILS (test code = 05969-9) 64.7 % PLATELET COUNT (test code = 82520-1) 200 K/UL See_Comment [Automated messa ge] The system which generated this result transmitted reference range: 130-400 K/UL. The reference range was not used to interpret this result as normal/abnormal. RBC (test code = 89792-5) 4.61 M/UL See_Comment [Automated messa ge] The system which generated this result transmitted reference range: 3.80-5.40 M/UL. The reference range was not used to interpret this result as normal/abnormal. RDW (test code = 97877-2) 12.7 % See_Comment [Automated messa ge] The system which generated this result transmitted reference range: 11.5-15.0 %. The reference range was not used to interpret this result as normal/abnormal. WBC (test code = 18259-0) 2.8 K/UL See_Comment L [Automated messa ge] The system which generated this result transmitted reference range: 3.5-11.0 K/UL. The reference range was not used to interpret this result as normal/abnormal.
[2024-08-08 20:07] LABS: Absolute Basophils 0.1 K/uL (0-0.5); Absolute Lymphocytes (CBC) 0.7 K/uL (0.7-4.9); Absolute Monocytes 0.4 K/uL (0.1-1.3); Absolute Neutrophil 4.1 K/uL (1.8-8.0); Eosinophils % 0.3 % (0-4.4); Hematocrit 41.6 % (36.0-45.0); Hemoglobin 14.5 g/dL (12.0-15.0); Lymphocytes % 14.1 % (15.3-44.8); MCH 31.8 pg (27.0-35.0); MCHC 34.9 g/dL (32.0-36.0); MCV 91.1 fL (80-100); MPV 7.1 fL (7.6-11.3); Monocytes % 6.6 % (3.3-12.3); Nucleated Red Blood Cells % 0.1 % (0-0); Platelets 236 thou/uL (152-406); RBC Red Blood Cell Count 4.57 M/uL (3.86-4.86)
[2024-08-08 20:24] LABS: Albumin 3.6 g/dL (3.4-5.0); Albumin/Globulin Ratio 1.1 (1.1-1.8); Anion Gap 8.8 mEq/L (5.0-15.0); Bilirubin Total 0.8 mg/dL (0.2-1.0); Globulin 3.3 g/dL (2.3-3.5); Potassium 3.8 mEq/L (3.5-5.1); Protein, Total 6.9 g/dL (6.4-8.2)
--- NOTE | 2024-08-08 21:21 | RAD REPORT ---
EXAMINATION: CT ABDOMEN AND PELVIS WITH CONTRAST CLINICAL INDICATION: diarrhea;Abd pain TECHNIQUE: CT abdomen and pelvis was performed, after the administration of IV contrast, as per [facility] protocol. Axial, sagittal and coronal reconstructions were obtained. One or more of the following dose reduction techniques were used: Automated exposure control, adjustment of the mA and k V according to patient size, and iterative reconstruction. Unless otherwise specified, incidental findings do not require dedicated imaging follow-up. COMPARISON: No prior exam. FINDINGS: LOWER CHEST: The visualized lung bases are clear. LIVER: Mild diffuse fatty liver. Several small low-density lesions likely small cysts but too small t o fully characterize. No aggressive liver lesions or biliary dilatation. Grossly unremarkable gallbladder. SPLEEN: Normal size. No focal lesion. PANCREAS: No mass, ductal dilation, or sanya-pancreatic fluid. ADRENALS: Normal; no mass. KIDNEYS: Normal size and contour. No hydronephrosis. GASTROINTESTINAL TRACT: No evidence of free air, significant intra-abdominal free fluid, bowel obstru ction or abscess. Moderate stool is present throughout the colon. APPENDIX: Normal appendix. LYMPH NODES: No lymphadenopathy. MUSCULOSKELETAL: No acute or suspicious osseous abnormality. ADDITIONAL FINDINGS: None. IMPRESSION: No acute abnormalities seen in the abdomen or pelvis. Mild fatty liver with small cysts suspected.
--- NOTE | 2024-08-08 21:56 | EDPHYS ---
Physician Documentation [facility] Name: Etelvina Polk Age: 64 yrs Sex: Female : 1960 Arrival Date: 08/08/2024 Time: 18:37 Bed IW2 Private MD: ED Physician Anthony Altamirano HPI: 08/08 20:04 This 64 yrs old Female presents to ER via Ambulatory with complaints of ec2 Diarrhea. 20:04 Patient arrives today for evaluation of diarrhea. Patient reports diarrhea ongoing for ec2 the past 1.5 weeks along with associated decreased p.o. intake and concern for dehydration. Patient reports she was urgent care and was evaluated with no concerning findings.. Historical: - Allergies: 18:48 Aleve; aa5 18:48 bisoprolol fumarate; aa5 18:48 Cortisone; aa5 18:48 Macrobid; aa5 18:48 Sulfa (Sulfonamide Antibiotics); aa5 18:48 Zofran; aa5 - Home Meds: 18:52 [employer] Thyroid 45mg Oral tab daily [Active]; Premarin 0.45 mg oral tablet once aa5 [Active]; Lomotil 2.5-0.025 mg oral tablet as needed [Active]; - PMHx: 18:48 Hypothyroidism; ibs; palpitations; aa5 - Immunization history:: Adult Immunizations unknown. - Infectious Disease History:: Denies. - Social history:: Smoking status: Patient denies any tobacco usage or history of. ROS: 20:05 Constitutional: as per hpi ec2 Exam: 20:05 Constitutional: GEN: NAD Head: atraumatic Eyes: EOMI Ears: External ears are ec2 normal. CV: regular rate LUNGS: no respiratory distress ABD: non-distended, soft, not guarding, not rigid SKIN: no evidence of rashes MSK: no evidence of trauma Vital Signs: 18:49 BP 181 / 92; Pulse 93; Resp 16 S; Temp 98.2(O); Pulse Ox 100% on R/A; Weight 68.04 kg aa5 (R); Height 5 ft. 6 in. ; 22:32 BP 176 / 89; Pulse 87; Resp 17 S; Temp 97.6(O); Pulse Ox 100% on R/A; Pain 2/10; lg3 18:49 Body Mass Index 24.21 (68.04 kg, 167.64 cm) aa5 22:32 Pain Scale: Adult lg3 MDM: 19:01 Medical Screening Exam initiated ec2 20:05 Data reviewed: vital signs, nurses notes. ED course: Patient arrives today for diarrhea ec2 and decreased p.o. intake. Examination yields reassuring abdominal exertion. Obtain lab work, urine studies, CT imaging. If patient provides stool studies , will send stool studies as well.. 21:05 ED course: CBC is reassuring, metabolic profile with proper electrolytes and renal ec2 function. Lipase within normal ranges. Pending CT imaging and stool studies.. 08/08 19:02 Order name: CBC with Diff; Complete Time: 21:05 ec2 08/08 19:02 Order name: CMP; Complete Time: 21:05 ec2 08/08 19:02 Order name: Lipase; Complete Time: 21:05 ec2 08/08 19:43 Order name: CT Abd/Pelvis - IV Contrast Only; Complete Time: 21:25 ec2 08/08 19:02 Order name: IV Saline Lock; Complete Time: 20:09 ec2 08/08 19:02 Order name: Labs collected and sent; Complete Time: 20:09 ec2 Administered Medications: 21:56 CANCELLED (Physician Discretion): ns 0.9% 500 ml IV at bolus once; to be given as a ec2 bolus over 30 minutes 22:10 CANCELLED (Physician Discretion): [id number] mg PO once ec2 22:13 Not Given (Patient Refused): [id number] mg PO once cg 22:28 Drug: Rocephin IV 1 grams IV at bolus once; Given slow IV push per pharmacy cg instructions Route: IV; Rate: bolus; Site: left antecubital; 22:30 Follow up: Response: No adverse reaction; IV Status: Completed infusion; IV Intake: [id number] Disposition Summary: 08/08/24 21:56 Discharge Ordered Notes: Location: Home ec2 Condition: Stable ec2 Diagnosis - Diarrhea, unspecified ec2 Followup: ec2 - With: Private Physician - When: - Reason: Re-evaluation by your physician Discharge Instructions: - Discharge Summary Sheet ec2 - Diarrhea, Adult ec2 Forms: - Medication Reconciliation Form ec2 - Antibiotic Education ec2 - Prescription Opioid Use ec2 - Patient Portal Instructions ec2 - Leadership Thank You Letter ec2 Signatures: Dispatcher [employer] EDMable Valencia, MELLISSA RN aa5 Felipa Muniz RN RN cg Corral, Edwin, MD MD ec2 Neisha Mata RN lg3 Corrections: (The following items were deleted from the chart) 19: 19:02 CBC+H.LAB.BRZ ordered. EDMS EDMS 19: 19:02 COMPREHENSIVE METABOLIC PANEL+C.LAB.BRZ ordered. EDMS EDMS 19:03 19:02 LIPASE+C.LAB.BRZ ordered. EDMS EDMS 21:56 21:48 NS 0.9% IV 500 ml IV at bolus once; to be given as a bolus over 30 minutes ec2 ordered. ec2 22:10 21:56 Ciprofloxacin PO 500 mg PO once ordered. ec2 ec2
--- NOTE | 2024-08-08 21:56 | ER ---
Nurse's Notes [facility] Name: Etelvina Polk Age: 64 yrs Sex: Female : 1960 Arrival Date: 08/08/2024 Time: 18:37 Bed IW2 Private MD: Diagnosis: Diarrhea, unspecified Presentation: 08/08 18:49 Chief complaint: Patient states: "diarrhea, nausea, weakness, and loss of appetite for aa5 over a week". Coronavirus screen: diarrhea, nausea. Ebola Screen: Patient denies travel to an Ebola-affected area in the 21 days before illness onset. Initial Sepsis Screen: Does the patient meet any 2 criteria? HR > 90 bpm. Does the patient have a suspected source of infection? No. Patient's initial sepsis screen is negative. Risk Assessment: Do you want to hurt yourself or someone else? Patient reports no desire to harm self or others. Onset of symptoms was July 2024. 18:49 Method Of Arrival: Ambulatory aa5 18:49 Acuity: JUAN C 3 aa5 Historical: - Allergies: 18:48 Aleve; aa5 18:48 bisoprolol fumarate; aa5 18:48 Cortisone; aa5 18:48 Macrobid; aa5 18:48 Sulfa (Sulfonamide Antibiotics); aa5 18:48 Zofran; aa5 - Home Meds: 18:52 [place] Thyroid 45mg Oral tab daily [Active]; Premarin 0.45 mg oral tablet once aa5 [Active]; Lomotil 2.5-0.025 mg oral tablet as needed [Active]; - PMHx: 18:48 Hypothyroidism; ibs; palpitations; aa5 - Immunization history:: Adult Immunizations unknown. - Infectious Disease History:: Denies. - Social history:: Smoking status: Patient denies any tobacco usage or history of. Screenin:32 [facility] ED Fall Risk Assessment (Adult) History of falling in the last 3 months, lg3 including since admission No falls in past 3 months (0 pts) Confusion or Disorientation No (0 pts) Intoxicated or Sedated No (0 pts) Impaired Gait No (0 pts) Mobility Assist Device Used No (0 pt) Altered Elimination No (0 pt) Score/Fall Risk Level 0 - 2 = Low Risk Oriented to surroundings, Maintained a safe environment, Educated pt \\T\\ family on fall prevention, incl call for assistance when getting out of bed, Assessed \\T\\ reinforced patient's understanding of fall precautions. Abuse screen: Denies threats or abuse. Denies injuries from another. Nutritional screening: No deficits noted. Tuberculosis screening: No symptoms or risk factors identified. Assessment: 22:32 General: Appears in no apparent distress. comfortable, Behavior is calm, cooperative. lg3 Pain: Complains of pain in abdomen Pain does not radiate. Pain currently is 2 out of 10 on a pain scale. Neuro: No deficits noted. Hall Agitation-Sedation Scale (RASS): 0 - Alert and Calm Level of Consciousness is awake, alert, obeys commands, Oriented to person, place, time, situation. Cardiovascular: No deficits noted. Denies chest pain, shortness of breath, Capillary refill < 3 seconds Clubbing of nail beds is absent JVD is absent Patient's skin is warm and dry. Respiratory: No deficits noted. Airway is patent Respiratory effort is even, unlabored, Respiratory pattern is regular, symmetrical. GI: Abdomen is non-distended, Bowel sounds present X 4 quads. Reports lower abdominal pain, diarrhea, nausea, vomiting. : No signs and/or symptoms were reported regarding the genitourinary system. EENT: No deficits noted. No signs and/or symptoms were reported regarding the EENT system. Derm: No deficits noted. No signs and/or symptoms reported regarding the dermatologic system. Skin is intact, is healthy with good turgor, Skin is dry, Skin is normal, Skin temperature is warm. Musculoskeletal: No deficits noted. No signs and/or symptoms reported regarding the musculoskeletal system. Circulation, motion, and sensation intact. Range of motion: intact in all extremities. Vital Signs: 18:49 BP 181 / 92; Pulse 93; Resp 16 S; Temp 98.2(O); Pulse Ox 100% on R/A; Weight 68.04 kg aa5 (R); Height 5 ft. 6 in. ; 22:32 BP 176 / 89; Pulse 87; Resp 17 S; Temp 97.6(O); Pulse Ox 100% on R/A; Pain 2/10; lg3 18:49 Body Mass Index 24.21 (68.04 kg, 167.64 cm) aa5 22:32 Pain Scale: Adult lg3 ED Course: 18:43 Patient arrived in ED. sj2 18:48 Arm band placed on. aa5 18:51 Triage completed. aa5 19:01 Anthony Altamirano MD is Attending Physician. ec2 20:09 Inserted saline lock: 20 gauge in left antecubital area, using aseptic technique. Blood bm8 collected. Flushed with 10 mL NS. 21:06 CT Abd/Pelvis - IV Contrast Only In Process Unspecified. EDMS 22:32 Patient has correct armband on for positive identification. lg3 22:32 No provider procedures requiring assistance completed. IV discontinued, intact, lg3 bleeding controlled, No redness/swelling at site. Pressure dressing applied. Administered Medications: 21:56 CANCELLED (Physician Discretion): ns 0.9% 500 ml IV at bolus once; to be given as a ec2 bolus over 30 minutes 22:10 CANCELLED (Physician Discretion): [id number] mg PO once ec2 22:13 Not Given (Patient Refused): [id number] mg PO once cg 22:28 Drug: Rocephin IV 1 grams IV at bolus once; Given slow IV push per pharmacy cg instructions Route: IV; Rate: bolus; Site: left antecubital; 22:30 Follow up: Response: No adverse reaction; IV Status: Completed infusion; IV Intake: [id number] Medication: 22:32 VIS not applicable for this client. lg3 Intake: 22:30 IV: 10ml; Total: 10ml. lg3 Outcome: 21:56 Discharge ordered by . ec2 22:32 Discharged to home ambulatory, lg3 22:32 Condition: stable 22:32 Discharge instructions given to patient, Instructed on discharge instructions, follow up and referral plans. Demonstrated understanding of instructions, follow-up care, 22:37 Patient left the ED. lg3 Signatures: Dispatcher [employer] EDMable Valencia RN MELLISSA [id number] Felipa Muniz RN Neisha Byrnes RN RN lg3 Anthony Altamirano MD MD 2 Rom Couch RN RN [id number] Gabbie Kidd sj2
[2024-08-08] MEDS ORDERED: CIPROFLOXACIN HCL 500 MG TAB ONE (22:06)
[2024-08-08] MEDS ORDERED: DICYCLOMINE HCL 10 MG CAP ONE (22:06)
[2024-08-08] MEDS ORDERED: CEFTRIAXONE 1000 MG/VIAL ONE (22:15)
[2024-08-08 23:45] VITALS: O2SAT 100
[2024-08-08 23:47] VITALS: BP 176/89; TEMP 97.6
== END 2024-08-08 22:37 | disposition home or self-care (01) ==
LOC: ER 18:37
DX: R19.7 Diarrhea, unspecified (principal)
CPT/HCPCS: 85025; 36415; 83690; 80053; 74177; 96374; 99284; Q9967; J0696